=== PATIENT | male | born 1960 | race Caucasian/White ===

== ENCOUNTER 2019-12-06 10:17 | Outpatient (CLI) | payer MEDICARE, OTHER ==
--- NOTE | 2019-12-06 17:55 | EKG ---
Test Reason : Blood Pressure : / mmHG Vent. Rate : 052 BPM Atrial Rate : 052 BPM P-R Int : 158 ms QRS Dur : 096 ms QT Int : 456 ms P-R-T Axes : 054 057 056 degrees QTc Int : 424 ms Sinus bradycardia Cannot rule out Anterior infarct , age undetermined Abnormal ECG When compared with ECG of 02-OCT-2015 09:15, No significant change was found Confirmed by AVELINO DUNCAN, SLenard ([id number]) on 12/06/2019 5:55:12 PM Referred By: MONIQUE Confirmed By:DR. Dunia YOU MD
[2019-12-06 18:14] LABS: #Basophils 0.1 thou/uL (0.0-0.2); #Eosinphils 0.3 thou/uL (0.0-0.7); #Lymphocytes 1.6 thou/uL (1.20-3.40); #Monocytes 0.9 thou/uL (0.11-0.59); %Basophils 0.8 % (0.0-1.0); %Eosinophils 2.9 % (0.0-10.0); %Lymphocytes 14.4 % (21.0-51.0); Hemoglobin 12.1 g/dL (14.0-18.0); Mean Corpuscular HGB CONC 32.4 g/dL (32.0-36.0); Mean Corpuscular Hemoglobin 28.4 pg (27.0-31.0); Mean Corpuscular Volume 87.6 fL (78.0-98.0); Mean Platelet Volume 10.6 fL (7.4-10.4); Platelet Count 167 thou/uL (130-400); RBC Distribution Width 13.9 % (11.5-14.5); Red Blood Cell (RBC) Count 4.26 mill/uL (4.70-6.10); White Blood Cell (WBC) Count 10.9 thou/uL (4.8-10.8)
[2019-12-06 18:24] LABS: Anion Gap 12 mmol/L (10-20); BUN (Urea Nitrogen) 21 mg/dL (8.4-25.7); Calc. Creatinine Clearance 0 mL/min (70-130); Calcium 8.4 mg/dL (7.8-10.44); Carbon Dioxide 26 mmol/L (22-29); Chloride 107 mmol/L (98-107); Estimated GFR-MDRD 55; Glucose 89 mg/dL (70-105); Sodium 141 mmol/L (136-145)
[2019-12-07 13:12] LABS: SARS-CoV-2 MS2 Positive; SARS-CoV-2 N Gene Negative; SARS-CoV-2 S Gene Negative; SARS-CoV-2 orf1ab Negative
== END 2019-12-06 10:18 | disposition home or self-care (01) ==
LOC: LABBT 10:17
PROVIDERS: ATTEND Orthopaedic Surgery
DX: Z01.818 Encounter for other preprocedural examination (principal); Z11.59 Encounter for screening for other viral diseases; S83.232A Complex tear of medial meniscus, current injury, left knee, initial encounter
CPT/HCPCS: 80048; 85025; 93005; U0003; 87635; 93010

== ENCOUNTER 2019-12-09 07:59 | Day surgery (SDC) | payer MEDICARE ==
[2019-12-06 12:19] VITALS: BMI 32.5
[2019-12-09] MEDS ORDERED: Lidocaine 1% w/Epinephrine 1:100K 20 ML VIAL ONE (09:27)
[2019-12-09] MEDS ORDERED: Bupivacaine PF 0.5% 30 ML VIAL ONE (09:27)
[2019-12-09] MEDS ORDERED: HYDROmorphone 0.5 MG/0.5 ML SYRINGE ONE (09:32)
[2019-12-09] MEDS ORDERED: Ondansetron PF 4 MG/2 ML Vial ONE (11:15)
[2019-12-09] MEDS ORDERED: Lidocaine 1% PF 5 ML VIAL ONE (11:15)
[2019-12-09] MEDS ORDERED: Dexamethasone 20 MG/5 ML VIAL ONE (11:15)
[2019-12-09] MEDS ORDERED: PROPOFOL 200 MG/20 ML VIAL ONE (11:15)
[2019-12-09] MEDS ORDERED: EPHEDRINE 25 MG/5 ML SYRINGE ONE (11:15)
[2019-12-09] MEDS ORDERED: Ketorolac Tromethamine 30 MG/ML VIAL ONE (11:15)
[2019-12-09] MEDS ORDERED: Fentanyl 100 MCG/2 ML VIAL ONE (11:17)
[2019-12-09] MEDS ORDERED: HYDROcodone/Acetaminophen 7.5/325 mg Tablet ONE (12:15)
--- NOTE | 2019-12-10 07:15 | OP ---
DATE OF PROCEDURE: 12/09/2019 PREOPERATIVE DIAGNOSIS: Tear of medial and lateral menisci of the left knee. POSTOPERATIVE DIAGNOSIS: 1. Tear of medial and lateral menisci of the left knee. 2. 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 3. Degenerative changes in all 3 compartments. PROCEDURES PERFORMED: Arthroscopy of the left knee with partial medial and lateral meniscectomy. ANESTHESIA: General. DESCRIPTION OF PROCEDURE: The patient was given preoperative IV antibiotics, taken to the operating room, placed in supine position. Satisfactory general anesthesia was performed. The left lower extremity was placed in a leg christensen and sterilely prepped and draped in the usual fashion. After exsanguination, tourniquet was raised to 300 mmHg at the proximal left thigh and the knee was scoped through the usual anterior medial and anterior lateral portals. Upon entering the suprapatellar pouch, there was mild synovitis. The patient had some thinning and fibrillating cartilage under the patella, but the patella rode well in the femoral groove and there were mild arthritic changes in the trochlea. The intercondylar notch revealed that the previous ACL reconstruction was gone. The PCL was intact. There was some spurring in the intercondylar notch. There was displaced lateral meniscus tear in the anterior horn and a shaver was used to perform partial lateral meniscectomy. The meniscal tear was extended through the body and posterior horn and a partial lateral meniscectomy again was performed using the ArthroWand and the shaver. There was some narrowing in portions of the femoral condyle and some defects in the posterior half of the lateral tibial plateau, which was consistent with at least moderate arthritis. There was some tearing of the body and posterior horn of the medial meniscus and a partial medial meniscectomy was performed. There again was also some thinning and fibrillation of the medial femoral condyle. During procedure, all the debris was irrigated out of the knee joint. The instruments were removed. Portals closed with 3-0 Rapide. Knee joint was injected with 0.5% Marcaine with epinephrine. Sterile dressing was applied. The tourniquet was released. The leg was taken out of the leg christensen. The patient was awakened, extubated, and transferred to recovery room in stable condition. ESTIMATED BLOOD LOSS: None. COMPLICATIONS: None. TOURNIQUET TIME: 27 minutes. DISCHARGE MEDICATION: Stuart 10/325, 1 every 6 hours as needed for pain, #40. Job ID: [id number]
== END 2019-12-09 13:10 | disposition home or self-care (01) ==
LOC: SDC 07:59
PROVIDERS: ATTEND Orthopaedic Surgery
PROC: 0SBD4ZZ Excision of Left Knee Joint, Percutaneous Endoscopic Approach (ICD-10-PCS; principal; 2019-12-09)
PROC: 0SBD4ZZ Excision of Left Knee Joint, Percutaneous Endoscopic Approach (ICD-10-PCS; 2019-12-09)
DX: S83.242A Other tear of medial meniscus, current injury, left knee, initial encounter (principal); S83.282A Other tear of lateral meniscus, current injury, left knee, initial encounter; M22.42 Chondromalacia patellae, left knee; M17.12 Unilateral primary osteoarthritis, left knee; M65.862 Other synovitis and tenosynovitis, left lower leg; I51.9 Heart disease, unspecified; G47.9 Sleep disorder, unspecified; Z87.891 Personal history of nicotine dependence; Z79.01 Long term (current) use of anticoagulants; Z79.899 Other long term (current) drug therapy; Z95.5 Presence of coronary angioplasty implant and graft; Z89.411 Acquired absence of right great toe; Z98.890 Other specified postprocedural states
CPT/HCPCS: J0690; J1100; J1170; J1885; J2405; J2704; J3010; S0020

== ENCOUNTER 2020-08-24 08:08 | Outpatient (CLI) | payer MEDICARE | END 2020-08-24 08:09 | disposition home or self-care (01) | LOC: RAD-FRANK 08:08 | PROVIDERS: ATTEND Internal Medicine Cardiovascular Disease | DX: I48.0 Paroxysmal atrial fibrillation (principal); E78.00 Pure hypercholesterolemia, unspecified; I10 Essential (primary) hypertension | CPT/HCPCS: 71046; 80053; 80061; 84443 ==

== ENCOUNTER 2022-03-08 07:47 | Outpatient (CLI) | payer MEDICARE | END 2022-03-08 07:48 | disposition home or self-care (01) | LOC: RAD-FRANK 07:47 | PROVIDERS: ATTEND Nurse Practitioner Family | DX: M79.604 Pain in right leg (principal) ==

== ENCOUNTER 2022-04-11 07:48 | Outpatient (CLI) | payer MEDICARE | END 2022-04-11 07:49 | disposition home or self-care (01) | LOC: RAD-FRANK 07:48 | PROVIDERS: ATTEND Nurse Practitioner Family | DX: I48.0 Paroxysmal atrial fibrillation (principal) | CPT/HCPCS: 71046 ==

== ENCOUNTER 2022-09-25 15:52 | Outpatient (CLI) | payer OTHER | END 2022-09-25 15:53 | disposition home or self-care (01) | LOC: RAD-FRANK 15:52 | PROVIDERS: ATTEND Nurse Practitioner Family | DX: M25.562 Pain in left knee (principal); M17.12 Unilateral primary osteoarthritis, left knee ==